=== PATIENT | male | born 1930 | race African-American/Black ===

== ENCOUNTER 2018-10-17 02:29 | Emergency (ER) | payer MEDICARE, OTHER ==
--- NOTE | 2018-10-17 03:03 | ED Physician Chart ---
ED Chief Complaint/HPI - Patient Information Date Seen:: 10/17/18 Time Seen:: 02:57 Chief Complaint:: aloc History of Present Illness:: this is an 87 yo male from home with relatives concerned about his complaint of abdominal pain. he also had some vomiting this am. Allergies:: Allergies Allergy/AdvReac Type Severity Reaction Status Date / Time No Known Allergies Allergy Verified 10/17/18 02:35 Vitals:: Vital Signs - 8 hr 10/17/18 02:30 Temp 99.1 F HR 96 RR 17 BP 113/71 O2 Sat % 95 Historian:: Family Member Review:: Nurse's Note Reviewed (god daughter) ED Review of Systems - Review of Systems General/Constitutional: No fever, No chills, No weight loss, No weakness, No diaphoresis, No edema, No loss of appetite, Other (he is unable to give a review of systems.) Skin: No skin lesions, No rash, No bruising Head: No headache, No light-headedness Eyes: No loss of vision, No pain, No diplopia ENT: No earache, No nasal drainage, No sore throat, No tinnitus Neck: No neck pain, No swelling, No thyromegaly, No stiffness, No mass noted Cardio Vascular: No chest pain, No palpitations, No PND, No orthopnea, No edema Pulmonary: No SOB, No cough, No sputum, No wheezing GI: No nausea, No vomiting, No diarrhea, No pain, No melena, No hematochezia, No constipation, No hematemesis G/U: No dysuria, No frequency, No hematuria Musculoskeletal: No bone or joint pain, No back pain, No muscle pain Endocrine: No polyuria, No polydipsia Psychiatric: No prior psych history, No depression, No anxiety, No suicidal ideation Hematopoietic: No bruising, No lymphadenopathy Allergic/Immuno: No urticaria, No angioedema Neurological: No syncope, No focal symptoms, No weakness, No paresthesia, No headache, No seizure, No dizziness, No confusion, No vertigo ED Past Medical History - Past Medical History Obtainable: Yes Past Medical History: HTN, DM, CVA/TIA, Dyslipidemia, Dementia Family History: None Social History: Non Smoker, No Alcohol, No Drug Use Surgical History: other (mesh placed in the right thigh) Psychiatricy History: Dementia Medication: Reviewed Family Medical History - Family Member Daughter History Unknown: Yes Living Status: Still Living ED Physical Exam - Physical Examination General/Constitutional: Awake, Well-developed, well-nourished, Alert, No distress, GCS 15, Non-toxic appearing, Ambulatory Other Gen/Cons comments:: lethargic and unable to respond well enough to be understood Head: Atraumatic Eyes: Lids, conjuctiva normal, PERRL, EOMI Skin: Nl inspection, No rash, No skin lesions, No ecchymosis, Well hydrated, No lymphadenopathy ENMT: External ears, nose nl, Nasal exam nl, Lips, teeth, gums nl Neck: Nontender, Full ROM w/o pain, No JVD, No nuchal rigidity, No bruit, No mass, No stridor Respiratory: Nl effort/Exclusion, Clear to Auscultation, No Wheeze/Rhonchi/Rales Cardio Vascular: RRR, No murmur, gallop, rubs, NL S1 S2 GI: No tenderness/rebounding/guarding, No organomegaly, No hernia, Normal BS's, Nondistended, No mass/bruits, No McBurney tenderness : No CVA tenderness Extremities: No tenderness or effusion, Full ROM, normal strength in all extremities, No edema, Normal digits & nails Neuro/Psych: Alert/oriented, DTR's symmetric, Normal sensory exam, Normal motor strength, Judgement/insight normal, Mood normal, Normal gait, No focal deficits (right sided weakness) Misc: Normal back, No paraspinal tenderness ED Labs/Radiology/EKG Results - Lab Results Results: Abnormal Lab Results 10/17/18 10/17/18 10/17/18 02:59 02:59 02:59 WBC 24.7 H* RBC 3.64 L Hgb 9.5 L Hct 28.9 L MCV 79.5 L MCH 26.0 L MCHC Differential 32.7 RDW 19.7 Plt Count 378 MPV 7.4 Add Manual Diff YES PT 10.3 INR 0.99 Sodium 131 L Potassium 3.7 Chloride 95 L Carbon Dioxide 25.2 Anion Gap 14.5 BUN 22 Creatinine 1.1 Est GFR ( Amer) TNP Est GFR (Non-Af Amer) TNP BUN/Creatinine Ratio 20.0 Glucose 165 H Calcium 9.0 Total Bilirubin 0.9 AST 24 ALT 18 Alkaline Phosphatase 45 Troponin I Total Protein 6.2 Albumin 3.8 L Globulin 2.4 Albumin/Globulin Ratio 1.6 Amylase 80 Lipase 8 L 10/17/18 02:59 WBC RBC Hgb Hct MCV MCH MCHC Differential RDW Plt Count MPV Add Manual Diff PT INR Sodium Potassium Chloride Carbon Dioxide Anion Gap BUN Creatinine Est GFR ( Amer) Est GFR (Non-Af Amer) BUN/Creatinine Ratio Glucose Calcium Total Bilirubin AST ALT Alkaline Phosphatase Troponin I 0.03 Total Protein Albumin Globulin Albumin/Globulin Ratio Amylase Lipase - EKG Interpretations EKG Time:: 02:46 Rate & Rhythm: rate 86, sinus [place]: right axis ED Assessment - Assessment General Assessment: aloc anemic sepsis ED Septic Shock - . Is Septic Shock (SBP<90, OR Lactate>4 mmol\L) present?: No - <6hrs of presentation: Vital Signs: Vital Signs - 8 hr 10/17/18 02:30 Temp 99.1 F HR 96 RR 17 BP 113/71 O2 Sat % 95 ED Reassessment (Disposition) - Reassessment Reassessment Condition:: Improved - Diagnosis Diagnosis:: urinary tract infection anemia diabetes - Patient Disposition Discharge/Transfer:: Acute Care (other hosp) Condition at Disposition:: Improved
[2018-10-17 03:12] LABS: BASOPHILE ABSOLUTE 0.5 Th/cumm (0-0.2); EOSINOPHILE ABSOLUTE 0.1 Th/cmm (0.1-0.4); HEMATOCRIT 28.9 % (41.0-60); HEMOGLOBIN 9.5 gm/dL (12-16); LYMPHOCYTE ABSOLUTE 0.5 Th/cmm (1.5-3.0); MEAN CELL VOLUME 79.5 fl (80-99); MEAN CORPUSCULAR HGB CONC 32.7 pg (28.0-36.0); MEAN PLATELET VOLUME 7.4 fl; MONOCYTE ABSOLUTE 0.4 Th/cmm (0.3-1.0); NEUTROPHILE ABSOLUTE 23.2 Th/cmm (1.8-8.0); PLATELET COUNT 378 Th/cmm (150-400); RED BLOOD COUNT 3.64 Mil/cmm (3.80-5.80); RED CELL DISTRIBUTION WIDTH 19.7 % (11.5-20.0)
[2018-10-17] MEDS: Sodium Chloride 0.9% 1,000 ML IV ONE (03:25)
[2018-10-17 03:30] LABS: INR 0.99 (0.5-1.4); PROTHROMBIN TIME (TEST) 10.3 SECONDS (9.5-11.5)
[2018-10-17 03:34] LABS: ALB/GLOB RATIO 1.6 (1.0-1.8); ALBUMIN 3.8 gm/dL (4.2-5.5); ALKALINE PHOSPHATASE 45 U/L (34-104); AMYLASE SERUM 80 U/L (29-103); ANION GAP 14.5 (7.0-16.0); BILIRUBIN,TOTAL 0.9 mg/dL (0.3-1.0); BUN - UREA NITROGEN 22 mg/dL (7-25); CARBON DIOXIDE 25.2 mEq/L (21.0-31.0); CHLORIDE 95 mEq/L (98-107); CREATININE - SERUM 1.1 mg/dL (0.7-1.3); GLUCOSE 165 mg/dL (70-105); LIPASE 8 U/L (11-82); POTASSIUM SERUM 3.7 mEq/L (3.5-5.1); SGOT 24 U/L (13-39); SGPT/ALT 18 U/L (7-52); SODIUM SERUM 131 mEq/L (136-145); TOTAL PROTEIN,SERUM 6.2 gm/dL (6.0-8.3)
[2018-10-17 03:43] LABS: URINE SOURCE CATH
[2018-10-17 03:59] LABS: URINE BILIRUBIN NEGATIVE (NEGATIVE); URINE BLOOD LARGE (NEGATIVE); URINE GLUCOSE (UA) NEGATIVE (NEGATIVE); URINE KETONE TRACE mg/dL (NEGATIVE); URINE LEUKOCYTE ESTERASE LARGE (NEGATIVE); URINE MICROSCOPIC INDICATED? YES; URINE NITRATE POSITIVE (NEGATIVE); URINE PROTEIN 100 mg/dL (NEGATIVE); URINE UROBILINOGEN 0.2 E.U./dL (0.2 - 1.0)
[2018-10-17 04:13] LABS: WHITE BLOOD COUNT 24.7 Th/cmm (4.8-10.8)
[2018-10-17 04:42] LABS: URINE COLOR YELLOW
[2018-10-17 04:43] LABS: URINE CLARITY SLIGHT HAZY (CLEAR)
[2018-10-17 06:37] LABS: BAND NEUTROPHILE 1 % (0-10); LYMPHOCYTE 5 % (20-50); MONOCYTE 3 % (2-10); NEUTROPHILS 91 % (40-80)
[2018-10-17 06:48] LABS: URINE RBC 25-50 /hpf (0-5)
[2018-10-17 06:49] LABS: URINE BACTERIA 1+ /hpf (NONE SEEN); URINE EPITHELIAL CELLS FEW /lpf (FEW)
[2018-10-17 08:01] LABS: AMPHETAMINE URINE NEGATIVE (NEGATIVE); BARBITURATES URINE NEGATIVE (NEGATIVE); BENZODIAZEPINES QUAL URINE NEGATIVE (NEGATIVE); CANNABINOID THC NEGATIVE (NEGATIVE); COCAINE METABOLITE QUAL URINE NEGATIVE (NEGATIVE); METHADONE URINE NEGATIVE (NEGATIVE); METHAMPHETAMINES QUAL URINE NEGATIVE (NEGATIVE); OPIATES (MORPHINE) QUAL. URINE NEGATIVE (NEGATIVE); PHENCYCLIDINE (PCP) URINE NEGATIVE (NEGATIVE); TRICYCLICS (TCA) QUAL. URINE NEGATIVE (NEGATIVE)
[2018-10-17] MEDS ORDERED: Triple Antibiotic 0.94 gm Pkt TP STA (08:01)
[2018-10-17] MEDS ORDERED: Triple Antibiotic 0.94 gm Pkt TP ONE ×2 (08:02→09:26)
[2018-10-17 08:03] LABS: MAGNESIUM 1.7 mg/dL (1.9-2.7); PHOSPHOROUS 3.4 mg/dL (2.5-5.0)
--- NOTE | 2018-10-17 09:19 | Diagnostic Imaging Report ---
CHEST X-RAY: AP view INDICATION: Hypoxia COMPARISON: None FINDINGS: Skin folds are noted. No focal consolidation or effusions. 3 mm calcified granuloma left lower lung zone is noted. Heart size normal. Atherosclerosis is noted. Degenerative changes of the spine are noted. IMPRESSION: No focal consolidation identified. 3 mm calcified granuloma of the left lower lung zone. Atherosclerotic vascular disease. .
--- NOTE | 2018-10-17 09:21 | Diagnostic Imaging Report ---
Head CT without intravenous contrast Indication: Altered level of consciousness Comparison: None Technique: Axial images were obtained from the vertex to the skull base without IV contrast. Coronal reconstructions were made. Total DLP: 736, CTDI40.8 FINDINGS: Images of the brain obtained without contrast demonstrate no evidence of an acute hemorrhage. There is diffuse atrophy most pronounced along the bifrontal lobe regions. Moderate white matter disease is noted with areas of encephalomalacia of the left frontal lobe and left periventricular region. The ventricles and basal cisterns are patent. No mass effect or midline shift. No evidence of a skull fracture or focal soft tissue swelling. There is mild mucosal thickening of the paranasal sinuses. IMPRESSION: No evidence of acute intracranial hemorrhage. Atrophy. Left frontal left periventricular encephalomalacia possibly due to old infarct Moderate supratentorial white matter disease which is nonspecific and may be due to chronic microvessel ischemia. Atherosclerotic vascular disease.
--- NOTE | 2018-10-17 09:30 | Diagnostic Imaging Report ---
CT abdomen and pelvis without intravenous contrast Indication: Abdominal pain Comparison: None, Technique: Axial images were obtained from the lung bases to the bilateral proximal femurs without IV contrast. Coronal reconstructions were made. total DLP: 539, CTDI11.9 FINDINGS: Bibasal atelectatic and hypoventilatory changes are noted. Exam is limited due to motion and lack of IV contrast. There is focal eventration of right hemidiaphragm with prominence of the dome of the liver. No focal splenic lesions. Limited assessment of the pancreas demonstrates no obvious focal lesions. The patient is status post cholecystectomy. Bilateral renal cysts are noted the largest probably a parapelvic cyst along the left mid to left lower kidney measuring 4.2 x 4 cm. There is also a high density lesions of the kidneys the largest along left inferior pole measuring 2.0 x 2.1 cm. There is mild left hydronephrosis and mild left hydroureter. Markedly distended urinary bladder is noted with mild urinary bladder wall thickening. There is also mild prominence of the prostatic urethra. A penile implant device is noted with reservoir along the left lower quadrant adjacent to the urinary bladder. General gaseous filled loops of bowel noted with copious stool. No appendicitis. There may be minimal inflammatory change along the sigmoid colonic region. No free fluid or free air. Heavy atherosclerotic vascular disease is noted. An IVC filter is noted at L3 level. There is diffuse anasarca. Degenerative changes spine and pelvis are noted. IMPRESSION: Multiple fluid and gas filled loops of of bowel with copious stool. Please correlate clinically for possible constipation and ileus. There is suggestion of minimal inflammatory change along the sigmoid pericolonic fat planes. Changes associated of mild colitis or minimal diverticulitis cannot be excluded. Clinical correlation and follow-up recommended Distended urinary bladder urinary bladder wall thickening. Inflammatory process cannot be excluded. There is also mild prominence of the prostatic urethra. Additional penile implant device is also noted with reservoir along the left lower quadrant. Mild left hydronephrosis and left hydroureter. No gross radiopaque renal stone identified. This may be secondary to patient's distended urinary bladder. Follow-up recommended Renal cysts and additional hemorrhagic cysts. Recommend short-term follow-up with ultrasound. Soft tissue Prominence of the dome of the right lobe of the liver probably due to focal eventration of the right hemidiaphragm. Underlying occult mass in this region is less likely, however, short-term follow-up CT with IV contrast with provide additional and assessment Evidence of prior cholecystectomy. IVC filter Diffuse atherosclerosis Anasarca.
[2018-10-17] MEDS ORDERED: metroNIDAZOLE 500mg/NS 100mL 500 MG/100 ML BAG IV ONE (09:48)
[2018-10-17] MEDS ORDERED: Ciprofloxacin 400mg Premix PB 400 MG/200 ML BAG IV ONE (10:14)
[2018-10-17] MEDS: Ciprofloxacin 400mg Premix PB 400 MG/200 ML BAG IV ONE (10:26)
== END 2018-10-17 11:31 | disposition left against medical advice (07) ==
LOC: ER 02:29
DX: N39.0 Urinary tract infection, site not specified (principal); D64.9 Anemia, unspecified; E11.9 Type 2 diabetes mellitus without complications; I10 Essential (primary) hypertension; E78.5 Hyperlipidemia, unspecified; F03.90 Unspecified dementia, unspecified severity, without behavioral disturbance, psychotic disturbance, mood disturbance, and anxiety; Z86.73 Personal history of transient ischemic attack (TIA), and cerebral infarction without residual deficits; Z98.890 Other specified postprocedural states
CPT/HCPCS: 99284; 96365; 96375; 93005; 71045; 70450; 74176; 84484; 36415; 36416; 85379; 82948; 83605 ×2; 80307; 85007; 85025; 85610; 87086; 81001; 82150; 83690; 83735; 84100; 80053; 87081; 87040 ×2; Z7610; J0744 ×2; J2405; J0696; 90799; J7030; Z7502